=== PATIENT | male | born 1955 | race Caucasian/White ===

== ENCOUNTER 2022-12-25 07:56 | Day surgery (SDC) | payer MEDICARE ==
[2022-12-24 11:35] VITALS: BP 136/73
[2022-12-25] VITALS (18 sets, daily range): BP systolic 104–160; BP diastolic 50–82
[~2022-12-25] VITALS: Ht 182.9 cm; Wt 157.4 kg
[~2022-12-25 07:56] MED LIST: APIX2.5T PO; ATOR10 PO; CHOL2000 PO; GABA300C PO; LISI20TA24 PO; OMEG100033 PO; PANT40TA54 PO; TAMS-1 PO; VITA1CAP85 PO
[2022-12-25] MEDS ORDERED: CEFAZOLIN SODIUM 2 GM VIAL ONE (08:10)
[2022-12-25] MEDS ORDERED: LACTATED RINGERS 1000ML 1,000 ML IV ONE (08:10)
[2022-12-25] MEDS ORDERED: LIDOCAINE PF 100MG/5ML (2%) SYRINGE 5ML ONE (08:42)
[2022-12-25] MEDS ORDERED: ROCURONIUM 10MG/1ML SYR 10 MG/ML ML ONE (08:43)
[2022-12-25] MEDS ORDERED: PROPOFOL 10 MG/ML 20ML VIAL IV ONE (08:43)
[2022-12-25] MEDS ORDERED: FENTANYL CITRATE PF 50 MCG/1 ML 2ML VIAL ONE (08:43)
[2022-12-25] MEDS ORDERED: MIDAZOLAM HCL 1 MG/ML 2ML VIAL ONE (08:43)
[2022-12-25] MEDS ORDERED: ONDANSETRON 4MG INJ ONE (09:22)
[2022-12-25] MEDS ORDERED: DEXAMETHASONE SOD PHOSPHATE 4 MG/ML 1ML VIAL ONE (09:22)
[2022-12-25] MEDS ORDERED: BUPIVACAINE/PF 0.25% 30ML VIAL IJ ONE (09:26)
[2022-12-25] MEDS ORDERED: PHENYLEPHRINE HCL 10 MG/ML 1ML VIAL IV ONE (09:34)
[2022-12-25] MEDS ORDERED: EPHEDRINE SULFATE 50 MG/ML AMPULE ONE (09:40)
[2022-12-25] MEDS ORDERED: KETOROLAC 30MG VIAL (30MG/ML) ONE (10:10)
[2022-12-25] MEDS ORDERED: GLYCOPYRROLATE 1 MG/5 ML SYRINGE ONE (10:10)
[2022-12-25] MEDS ORDERED: NEOSTIGMINE 5MG/5ML SYR IV ONE (10:11)
== END 2022-12-25 12:30 | disposition home or self-care (01) ==
LOC: DAH 07:56
PROVIDERS: ATTEND Surgery
DX: L05.91 Pilonidal cyst without abscess (principal); Z20.822 Contact with and (suspected) exposure to COVID-19; L05.92 Pilonidal sinus without abscess; L98.8 Other specified disorders of the skin and subcutaneous tissue; I10 Essential (primary) hypertension; K21.9 Gastro-esophageal reflux disease without esophagitis; E78.00 Pure hypercholesterolemia, unspecified; E66.9 Obesity, unspecified; Z80.3 Family history of malignant neoplasm of breast; Z80.0 Family history of malignant neoplasm of digestive organs; Z98.890 Other specified postprocedural states; Z90.89 Acquired absence of other organs; Z86.711 Personal history of pulmonary embolism; Z79.01 Long term (current) use of anticoagulants; Z68.41 Body mass index [BMI] 40.0-44.9, adult
CPT/HCPCS: 87426; 11771; 88304; A6260; J1100; A4663; J7120 ×2; A4649; A4606; J3010; J3490 ×3; J2710; J2001; J2250; J2704; J2405; J1885; J2370; J0690; A4215; A4223; A4222; A4221